=== PATIENT | female | born 1995 | race Caucasian/White ===

== ENCOUNTER 2023-04-15 13:55 | Emergency (ER) | payer OTHER ==
[~2023-04-15] VITALS: Ht 157.5 cm; Wt 72.6 kg
[2023-04-15 14:07] VITALS: BP 106/64; PULSE 84; RESP 16; TEMP 98.5; O2SAT 98
== END 2023-04-15 16:16 | disposition home or self-care (01) ==
LOC: ER 13:55
DX: S61.307A Unspecified open wound of left little finger with damage to nail, initial encounter (principal); X58.XXXA Exposure to other specified factors, initial encounter; Y93.89 Activity, other specified; Y92.89 Other specified places as the place of occurrence of the external cause; Y99.8 Other external cause status
CPT/HCPCS: 99282